=== PATIENT | male | born 1985 | race Caucasian/White ===

== ENCOUNTER → 2017-03-28 10:54 | Outpatient (CLI) | payer BC, SELFPAY ==
--- NOTE | 2017-03-28 08:00 | VAS_PTH ---
PATIENT: HAYES ORELLANA LOC: [facility] U#:[id number] AGE/SX: 39/M ROOM: RE03/28/[address]: Dr. Conner Guevara MD : 1985 BED: DIS: SPEC #: [id number] RECD: 03/28/17 13:49 STATUS: PATRICIA CONOR #: [id number] MARYAM: 03/28/17 08:[address]: Conner Guevara DEPT: SURGICAL PATHOLOGY RECD BY: Ean Mahajan ENTERED: 03/28/17 13:50 SP TYPE: VAS OTHR DR: Dr. Teodoro Cano MD Tissues: A - Vas deferens, NOS B - Vas deferens, NOS Procedures: Surgery Specimen Level II HEADER OPERATION: Bilateral partial vasectomy PRE-OP DIAGNOSIS: Sterilization TISSUE SUBMITTED: A ? Right vas deferens, B ? Left vas deferens MICROSCOPIC DIAGNOSIS A. Right vas deferens, segmental vasectomy: Complete segment of vas deferens with no pathologic change. B. Left vas deferens, segmental vasectomy: Complete segment of vas deferens with no pathologic change. AM:aby 03/31/17 MICROSCOPIC DESCRIPTION Slides are reviewed. GROSS DESCRIPTION A - Received is one container designated right vas deferens. The specimen consists of a cylindrical segment of pink-mitchell soft tissue. The fragment measures 2 cm in length and 0.2 cm in maximum diameter. Serial sections do not reveal gross lesions. The entire specimen is submitted in one cassette and will be sectioned at the time of embedding. B - Received is one container designated left vas deferens. The specimen consists of a cylindrical segment of pink-mitchell soft tissue. The fragment measures 1.5 cm in length and 0.2 cm in maximum diameter. Serial sections do not reveal gross lesions. The entire specimen is submitted in one cassette and will be sectioned at the time of embedding. / SJ:aby 03/28/17 TC:4 CPT: 70438 x2
== END ==
PROVIDERS: Family Provider Family Medicine; PCP Family Medicine; Visit Provider Surgery
DX: Z30.2 Encounter for sterilization (principal)
CPT/HCPCS: 88302

== ENCOUNTER → 2017-05-08 09:17 | Outpatient (CLI) | payer BC, SELFPAY ==
[2017-05-09 14:11] LABS: Semen Analysis Post Vas ABSENT
== END ==
PROVIDERS: Visit Provider Surgery
DX: Z30.2 Encounter for sterilization (principal)
CPT/HCPCS: 89321

== ENCOUNTER → 2017-06-09 16:58 | Outpatient (CLI) | payer BC, SELFPAY ==
[2017-06-11 10:00] LABS: Semen Analysis Post Vas ABSENT
== END ==
PROVIDERS: Visit Provider Surgery
DX: Z30.2 Encounter for sterilization (principal)
CPT/HCPCS: 89321